=== PATIENT | female | born 1935 | race Caucasian/White ===

== ENCOUNTER 2016-09-18 19:23 | Emergency (ER) | payer MEDICARE, OTHER ==
--- NOTE | 2016-09-30 01:48 | ER ---
ADMIT: 09/18/2016 RM/LOC: ER [facility] MR#: [id number] [address] [address] [place] [address] Emergency Room Report SEX: F AGE: 81 : 1935 DATE: 09/18/2016 The patient is an 81-year-old female, resident of [place], transferred with increasing confusion. She states she feels fine, is not sure why she is here. Nursing report states that she has had a temp of 99.2, pulse of 120, respirations of 24. Exam remarkable for nontoxic, afebrile, tachycardic, otherwise pleasantly demented female, in no acute distress. 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 Chest x-ray, no acute findings. Normal CBC, CMP with exception of creatinine 1.5, potassium 3.6, negative procalcitonin, CRP 1.62. UA shows trace blood, 1 WBC. EKG showed low voltage. Return to [place] continuing all current medications and orders. The patient was given a liter of bolus. Otherwise, no other treatments. Heart rate at dismissal was less than 100. The patient seemed to feel overall improved. Amado Howard MD/ modl JOB #: [id number] CC: Amado Howard MD, Attending Physician Janis Freeman MD, Family Physician Janis Freeman MD
== END 2016-09-18 21:40 | disposition home or self-care (01) ==
LOC: ER 19:23
DX: R41.0 Disorientation, unspecified (principal); I10 Essential (primary) hypertension; E78.5 Hyperlipidemia, unspecified; F03.90 Unspecified dementia, unspecified severity, without behavioral disturbance, psychotic disturbance, mood disturbance, and anxiety; M19.90 Unspecified osteoarthritis, unspecified site; M81.0 Age-related osteoporosis without current pathological fracture; Z88.8 Allergy status to other drugs, medicaments and biological substances; Z86.73 Personal history of transient ischemic attack (TIA), and cerebral infarction without residual deficits

== ENCOUNTER 2016-10-24 11:08 | Emergency (ER) | payer MEDICARE, OTHER ==
--- NOTE | 2016-10-26 01:27 | ER ---
ADMIT: 10/24/2016 RM/LOC: [facility] MR#: [id number] [address] [address] [place] [address] Emergency Room Report SEX: F AGE: 81 : 1935 DATE: 10/24/2016 PRIMARY CARE: Lydia. Please refer to my T-sheet for complete H and P. Briefly, the patient is an 81-year-old who has a known history of dementia, lives at [facility]. Apparently, she was choking on a hard-boiled egg and then started having chest pain. They were concerned and they transferred over here. When she gets here, she says she is feeling fine. She has some right- sided chest pain that she has had for several months. It was hard to tell if anything was specifically different, but, she is here saying that she rates the pain mild. It is a right side same pain she has had from shingles in the past. No other complaints. PHYSICAL EXAMINATION: VITAL SIGNS: Her blood pressure 125/69, pulse 82, respirations 18, temp 97.1, sat 100%. GENERAL: She is no acute distress. HEENT: Grossly normal. LUNGS: Clear. HEART: Regular. No murmur. CHEST WALL: She has a little bit of reproducible pain around her right breast. No rashes noted. No other abnormality. ABDOMEN: Soft. SKIN: No rash. NEURO: She is slightly confused, but nonfocal. EMERGENCY DEPARTMENT COURSE: EKG was sinus rhythm, showed a rate of 82, no changes. Chest x-ray showed no acute disease. CBC normal. Chemistries normal except BUN 30, creatinine 1.3. Troponin was negative. She was asymptomatic except that chronic right-sided chest wall pain she has had some shingles. I talked to Dr. Freeman, talked to her family. She is ready for discharge. ASSESSMENT: 1. Atypical chest pain. 2. Choking episode, resolved at this time. No evidence of aspiration on the CAT scan. Her sats are good and she has no symptoms. PLAN: Return. Continue care. Follow up with psych. Bob Vásquez MD/ idalia JOB #: [id number] CC: Bob Vásquez MD, Attending Physician Janis Freeman MD, Family Physician
== END 2016-10-24 12:38 | disposition home or self-care (01) ==
LOC: ER 11:08
DX: R07.89 Other chest pain (principal); I10 Essential (primary) hypertension; E78.5 Hyperlipidemia, unspecified; Z86.73 Personal history of transient ischemic attack (TIA), and cerebral infarction without residual deficits; Z88.8 Allergy status to other drugs, medicaments and biological substances